=== PATIENT | male | born 1995 | race Caucasian/White ===

== ENCOUNTER 2017-06-15 18:52 | Emergency (ER) | payer MEDICAID ==
[~2017-06-15] VITALS: Ht 180.3 cm; Wt 68.0 kg
[~2017-06-15 18:52] MED LIST: ADVAIR HFA 230M12 GM IH; ALBUTEROL2.5 MG/0.1 INH; ALBUTEROL2.5 MG/0.5 INH; ALBUTEROL2.5 MG/3 M IH; ALBUTEROL2.5 MG/31 INH; AZITHROMYCIN 2250 MG PO; DELTASONE20 MG PO; FLEXERIL PO; HYDROCODONE-AP1 EAC6 PO; IBUPROFEN 800800 M1 PO; LORATIDINE 10 M10 M1 PO; MEDROL DOSPAK21 TA1 PO; MEDROLDOSEPACK PO; NAPROSYN375 MG PO; PREDNISONE 20 M20 M1 PO; PREDNISONE 20 M20 MG PO; PREDNISONE 5 MG5 M1 PO; PREDNISONE50 MG PO; PROAIR HFA8.5 GM IH; PROAIR HFA8.5 GM INH; PROAIR HFA8.5 GM PO; SINGULAIR 10 MG10 M1 PO; SYMBICORT; SYMBICORT80 MCG/4.1 INH; VENTOLIN HFA 1818 GM INH; VENTOLIN HFA INH8 GM IH; XOPENEX HF1 UDINHALE IH; XOPENEX HF1 UDINHALE INH; XOPENEX0.31 MG/3 IH; ZPAK PO
[2017-06-15 18:57] VITALS: BP 117/75
[2017-06-15] MEDS ORDERED: ALBUTEROL2.5 MG/31 INH (19:19)
[2017-06-15] MEDS ORDERED: PROAIR HFA8.5 GM INH (19:19)
[2017-06-15] MEDS ORDERED: SINGULAIR 10 MG10 M1 PO (19:19)
== END 2017-06-15 19:20 | disposition home or self-care (01) ==
LOC: M.ERS 18:52
DX: J45.909 Unspecified asthma, uncomplicated (principal); Z76.0 Encounter for issue of repeat prescription; F17.210 Nicotine dependence, cigarettes, uncomplicated

== ENCOUNTER 2018-08-07 10:05 | Emergency (ER) | payer MEDICAID ==
[~2018-08-07] VITALS: Ht 182.9 cm; Wt 72.6 kg
[2018-08-07] MEDS ORDERED: SYMBICORT80 MCG/4.1 INH (10:16)
[2018-08-07] MEDS ORDERED: PREDNISONE 10 M10 MG PO (10:32)
[2018-08-07] MEDS ORDERED: VENTOLIN HFA 1818 GM INH (10:32)
[2018-08-07] MEDS ORDERED: SYMBICORT160 MCG/4. INH (10:32)
[2018-08-07 10:42] VITALS: BP 142/75
== END 2018-08-07 10:44 | disposition left against medical advice (07) ==
LOC: M.ERS 10:05
DX: J45.901 Unspecified asthma with (acute) exacerbation (principal); F17.210 Nicotine dependence, cigarettes, uncomplicated